=== PATIENT | male | born 1950 | race Caucasian/White ===

== ENCOUNTER 2017-08-04 23:55 | Emergency (ER) | payer MEDICARE, BC ==
[~2017-08-04] VITALS: Ht 185.4 cm; Wt 120.0 kg
[2017-08-04 23:57] VITALS: BP 150/74; PULSE 76; RESP 16; TEMP 97.6; O2SAT 95
[2017-08-05] MEDS ORDERED: GLIM4TAB PO (00:25)
[2017-08-05] MEDS ORDERED: METF500T PO (00:25)
[2017-08-05] MEDS ORDERED: LEVEMIR SQ (00:25)
[2017-08-05] MEDS ORDERED: LOSA25TA PO (00:25)
[2017-08-05 00:27] VITALS: BP 199/91; PULSE 70; RESP 20; O2SAT 96
[2017-08-05] MEDS ORDERED: HYDR-3516 PO (00:29)
[2017-08-05] MEDS ORDERED: SODIUM CHLORIDE 0.9% FLUSH 10 ML FLUSH IV FLUSH PRN (00:30)
[2017-08-05] MEDS ORDERED: MORPHINE SULFATE 2 MG/ML INJ IV PUSH ONE ×2 (00:45→02:00)
[2017-08-05] MEDS ORDERED: ONDANSETRON HCL 4 MG/2 ML VIAL IV PUSH ONE (00:45)
[2017-08-05 00:57] LABS: AUTOMATED NEUTROPHIL # 11.7 TH/MM3 (1.8-7.7); BASOPHIL # 0.1 TH/MM3 (0-0.2); BASOPHIL % 0.6 % (0.0-2.0); EOSINOPHIL # 0.2 TH/MM3 (0-0.4); EOSINOPHIL % 1.1 % (0.0-4.0); HEMATOCRIT 44.8 % (39.0-51.0); HEMOGLOBIN 15.5 GM/DL (13.0-17.0); LYMPH % 15.6 % (9.0-44.0); LYMPHOCYTE # 2.4 TH/MM3 (1.0-4.8); MEAN CELL VOLUME 89.9 FL (80.0-100.0); MEAN CORPUSCULAR HGB CONC 34.5 % (32.0-36.0); MEAN PLATELET VOLUME 7.6 FL (7.0-11.0); MONO % 5.2 % (0.0-8.0); MONOCYTE # 0.8 TH/MM3 (0-0.9); NEUT % 77.5 % (16.0-70.0); PLATELET COUNT 255 TH/MM3 (150-450); RED BLOOD COUNT 4.98 MIL/MM3 (4.50-5.90); RED CELL DISTRIBUTION WIDTH 13.4 % (11.6-17.2); WHITE BLOOD COUNT 15.1 TH/MM3 (4.0-11.0)
[2017-08-05 01:03] LABS: AMORPHOUS SEDIMENT, URINE RARE; BILIRUBIN, URINE NEG (NEG); BLOOD, URINE MOD (NEG); GLUCOSE,URINE NEG (NEG); KETONE, URINE TRACE mg/dL (NEG); MUCUS URINE MOD /lpf (OCC); NITRITE,URINE NEG (NEG); PH, URINE 5.5 (5.0-8.5); URINE COLOR YELLOW (YELLW/STRAW); URINE LEUKOCYTE ESTERASE NEG (NEG)
[2017-08-05 01:11] LABS: ALBUMIN 4.1 GM/DL (3.4-5.0); ALT (GPT) 25 U/L (12-78); AST (GOT) 14 U/L (15-37); BICARBONATE 25.7 MEQ/L (21.0-32.0); BLOOD UREA NITROGEN 20 MG/DL (7-18); CHLORIDE 108 MEQ/L (98-107); CREATININE 1.39 MG/DL (0.60-1.30); GLOMERULAR FILTRATION RATE 51 ML/MIN (>89); GLUCOSE,RANDOM 160 MG/DL (74-106); LIPASE 127 U/L (73-393); SODIUM (NA) 141 MEQ/L (136-145)
[2017-08-05 01:14] LABS: ALKALINE PHOSPHATASE 77 U/L (45-117); TOTAL BILIRUBIN ADULT 0.7 MG/DL (0.2-1.0)
[2017-08-05] MEDS ORDERED: IOHEXOL 350 MG/ML 10 ML VIAL (for RAD DIAG) IVCONTRAST ONE (01:37)
[2017-08-05] MEDS ORDERED: metroNIDAZOLE 500 MG INJ 100 ML IV ONE (01:45)
[2017-08-05] MEDS ORDERED: LEVOFLOXACIN 500 MG PREMIX INJ 100 ML IV ONE (01:45)
--- NOTE | 2017-08-05 01:52 | RADRPT ---
EXAM DATE/TIME: 08/05/2017 01:14 This report includes an Addendum and supersedes previous reports for this exam. [facility] COMPARISON: No previous studies available for comparison. INDICATIONS : Right abdomen pain. IV CONTRAST: 75 cc Omnipaque 350 (iohexol) IV ORAL CONTRAST: No oral contrast ingested. RADIATION DOSE: 10.63 CTDIvol (mGy) MEDICAL HISTORY : None SURGICAL HISTORY : Gastric sleeve. ENCOUNTER: Initial ACUITY: 1 day PAIN SCALE: 9/10 LOCATION: Right abdomen TECHNIQUE: Volumetric scanning of the abdomen and pelvis was performed. Using automated exposure control and ad justment of the mA and/or kV according to patient size, radiation dose was kept as low as reasonably achievable to obtain optimal diagnostic quality images. DICOM format image data is available electro nically for review and comparison. FINDINGS: LOWER LUNGS: 1.7 cm smooth margin mass in the medial right lower lung is seen on image #4. LIVER: Homogeneous density without lesion. There is no dilation of the biliary tree. No calcified gallston es. SPLEEN: Normal size without lesion. PANCREAS: Within normal limits. KIDNEYS: 2.5 cm exophytic cyst medial upper pole right kidney. No solid lesions. No evidence of hydronephros is. ADRENAL GLANDS: Within normal limits. VASCULAR: There is no aortic aneurysm. BOWEL/MESENTERY: Prior gastric sleeve surgery. No dilated loops of small or large bowel. A few small sigmoid diverti cula no radiographic evidence of diverticulitis. ABDOMINAL WALL: Within normal limits. RETROPERITONEUM: There is no lymphadenopathy. In the right deep pelvis, to the right of the rectum, there are multipl e mildly prominent vessels suggesting pelvic varices. No evidence of free fluid. BLADDER: No wall thickening or mass. REPRODUCTIVE: Prostate normal size. A few calcifications in the central zone. INGUINAL: There is no lymphadenopathy or hernia. MUSCULOSKELETAL: Within normal limits for patient age. CONCLUSION: 1. 1.7 cm mass medial right lower lobe. Cannot exclude malignancy. 2. Findings suggest right deep pelvic varices. No evidence of free fluid. Luis Vieyra MD on August 05, 2017 at 1:44 Board Certified Radiologist. This report was verified electronically. ADDENDUM: Not mentioned above is right-sided obstructive uropathy: The collecting system of the right kidney is minimally prominent and the right ureter is also dilated down to the distal portion. At the right u reterovesical junction, there is a 3 mm calcification is seen on image #88, characteristic of an obst ructing stone. Luis Vieyra MD on August 05, 2017 at 3:06 Board Certified Radiologist. This report was verified electronically.
[2017-08-05] MEDS ORDERED: KETOROLAC TROMETHAMINE 30 MG/ML (IVP) VIAL IV PUSH ONE (02:00)
[2017-08-05] MEDS ORDERED: SODIUM CHLOR 0.9% 1000 ML INJ 1,000 ML IV ONE ×2 (02:00→03:15)
[2017-08-05 02:01] VITALS: BP 179/80; PULSE 73; RESP 20; O2SAT 95
[2017-08-05] MEDS ORDERED: TRAM50 PO (03:38)
--- NOTE | 2017-08-05 03:38 | PD ---
HPI . Abdominal pain Chief Complaint: Abdominal Pain Time Seen by Provider: 00:21 Travel History International Travel<30 days: No Contact w/Intl Traveler<30days: No Traveled to known affect area: No History of Present Illness HPI 67-year-old male history of gastric sleeve 4 years ago, recent gastroenteritis type illness with diarrhea and 6. Weight loss over the past week that his subsided, notes relatively sudden onset right lower quadrant abdominal pain is cramping in nature and very sharp. Patient denies history of same prior. Denies fever chills sweats, dysuria frequency frequency, flank pain. Patient has moderate nausea with onset of pain. Previous diarrhea described as watery, brown/stool colored, no mucus no blood. Patient denies any significant travel history, any recent antibiotics, or any significant idiosyncratic food intake. PFSH Past Medical History Narrative Medical Past medical history reviewed Diabetes: Yes Patient Takes Glucophage: Yes Past Surgical History Abdominal Surgery: Yes (GASTRIC SLEEVE) Social History Alcohol Use: No Tobacco Use: No Substance Use: No Allergies-Medications (Allergen,Severity, Reaction): Coded Allergies: Penicillins (Verified Allergy, Mild, Itching, 08/05/17) Reported Meds & Prescriptions Reported Meds & Active Scripts Active Reported Hydrocodone-Acetaminophen 5-325 mg Tab 1 Tab PO Q6H PRN Levemir Inj (Insulin Detemir) 1,000 unit/ 10 ML Vial 20 Units SQ HS Do not mix with any other Insulin. Glimepiride 4 Mg Tab 4 Mg PO DAILY Take with breakfast or first main meal Losartan (Losartan Potassium) 25 Mg Tab 25 Mg PO DAILY Metformin (Metformin HCl) 500 Mg Tab 500 Mg PO BIDPC Narrative Medication Allergies and medications reviewed Review of Systems Except as stated in HPI: all other systems reviewed are Neg General / Constitutional: No: Fever Eyes: No: Visual changes HENT: No: Headaches Cardiovascular: No: Chest Pain or Discomfort Respiratory: No: Shortness of Breath Gastrointestinal: Positive: Nausea, Vomiting, Diarrhea, Abdominal Pain Genitourinary: No: Urgency, Frequency, Dysuria, Hematuria Musculoskeletal: No: Pain Skin: No Rash Neurologic: No: Weakness Psychiatric: No: Depression Endocrine: No: Polydipsia Hematologic/Lymphatic: No: Easy Bruising Physical Exam Narrative GENERAL: Awake and alert oriented 3, uncomfortable appearing. SKIN: Warm and dry. Color slightly pale, mildly diaphoretic HEAD: Atraumatic. Normocephalic. EYES: Pupils equal and round. No scleral icterus. No injection or drainage. ENT: No nasal bleeding or discharge. Mucous membranes pink and moist. NECK: Trachea midline. No JVD. Supple full range of motion CARDIOVASCULAR: Regular rate and rhythm. S1-S2 no murmurs rubs gallops RESPIRATORY: No accessory muscle use. Clear to auscultation. Breath sounds equal bilaterally. GASTROINTESTINAL: Abdomen soft, non-tender, nondistended. Hepatic and splenic margins not palpable. MUSCULOSKELETAL: Extremities without clubbing, cyanosis, or edema. No obvious deformities. NEUROLOGICAL: Awake and alert. No obvious cranial nerve deficits. Motor grossly within normal limits. Five out of 5 muscle strength in the arms and legs. Normal speech. PSYCHIATRIC: Appropriate mood and affect; insight and judgment normal. Data Data Last Documented VS Vital Signs Date Time Temp Pulse Resp B/P (MAP) Pulse Ox O2 Delivery O2 Flow Rate FiO2 08/05/17 02:01 73 20 179/80 (113) 95 Room Air 08/04/17 23:57 97.6 Orders Orders Complete Blood Count With Diff (08/05/17 00:29) Comprehensive Metabolic Panel (08/05/17 00:29) Lipase (08/05/17 00:29) Lactic Acid (08/05/17 00:29) Urinalysis - C+S If Indicated (08/05/17 00:29) Ct Abd/Pel W Iv Contrast(Rout) (08/05/17 00:29) Iv Access Insert/Monitor (08/05/17 00:29) Ecg Monitoring (08/05/17 00:29) Oximetry (08/05/17 00:29) Sodium Chloride 0.9% Flush (Ns Flush) (08/05/17 00:30) Ondansetron Inj (Zofran Inj) (08/05/17 00:45) Morphine Inj (Morphine Inj) (08/05/17 00:45) Levofloxacin 500 Mg Premix Inj (Levaquin (08/05/17 01:45) Metronidazole 500 Mg Inj (Flagyl 500 Mg (08/05/17 01:45) Iohexol 350 Inj (Omnipaque 350 Inj) (08/05/17 01:37) Sodium Chlor 0.9% 1000 Ml Inj (Ns 1000 M (08/05/17 02:00) Ketorolac Inj (Toradol Inj) (08/05/17 02:00) Morphine Inj (Morphine Inj) (08/05/17 02:00) Sodium Chlor 0.9% 1000 Ml Inj (Ns 1000 M (08/05/17 03:15) Labs Laboratory Tests Test 08/05/17 00:35 08/05/17 00:40 Urine Color YELLOW Urine Turbidity CLEAR Urine pH 5.5 Urine Specific [place] 1.033 Urine Protein 30 mg/dL Urine Glucose (UA) NEG mg/dL Urine Ketones TRACE mg/dL Urine Occult Blood MOD Urine Nitrite NEG Urine Bilirubin NEG Urine Urobilinogen 2.0 MG/DL Urine Leukocyte Esterase NEG Urine RBC /hpf Urine WBC 2 /hpf Urine Amorphous Sediment RARE Urine Mucus MOD /lpf Microscopic Urinalysis Comment CULT NOT INDICATED White Blood Count 15.1 TH/MM3 Red Blood Count 4.98 MIL/MM3 Hemoglobin 15.5 GM/DL Hematocrit 44.8 % Mean Corpuscular Volume 89.9 FL Mean Corpuscular Hemoglobin 31.0 PG Mean Corpuscular Hemoglobin Concent 34.5 % Red Cell Distribution Width 13.4 % Platelet Count 255 TH/MM3 Mean Platelet Volume 7.6 FL Neutrophils (%) (Auto) 77.5 % Lymphocytes (%) (Auto) 15.6 % Monocytes (%) (Auto) 5.2 % Eosinophils (%) (Auto) 1.1 % Basophils (%) (Auto) 0.6 % Neutrophils # (Auto) 11.7 TH/MM3 Lymphocytes # (Auto) 2.4 TH/MM3 Monocytes # (Auto) 0.8 TH/MM3 Eosinophils # (Auto) 0.2 TH/MM3 Basophils # (Auto) 0.1 TH/MM3 CBC Comment DIFF FINAL Differential Comment Blood Urea Nitrogen 20 MG/DL Creatinine 1.39 MG/DL Random Glucose 160 MG/DL Total Protein 8.0 GM/DL Albumin 4.1 GM/DL Calcium Level 9.0 MG/DL Alkaline Phosphatase 77 U/L Aspartate Amino Transf (AST/SGOT) 14 U/L Alanine Aminotransferase (ALT/SGPT) 25 U/L Total Bilirubin 0.7 MG/DL Sodium Level 141 MEQ/L Potassium Level 4.3 MEQ/L Chloride Level 108 MEQ/L Carbon Dioxide Level 25.7 MEQ/L Anion Gap 7 MEQ/L Estimat Glomerular Filtration Rate 51 ML/MIN Lactic Acid Level 0.9 mmol/L Lipase 127 U/L [facility] Medical Decision Making Medical Screen Exam Complete: Yes Emergency Medical Condition: Yes Medical Record Reviewed: Yes Differential Diagnosis Diverticulitis, acute gastroenteritis, colitis, renal colic Narrative Course Patient's laboratory examinations reviewed, no significant abnormalities, patient has mild elevated glucose, slightly sluggish renal function it GFR 52. CT abdomen and pelvis reviewed. Patient has mildly dilated ureter right sided with small 2 mm UVJ stone. Right pelvic varices noted, of unclear significance or correlation. Right lower lung field 1.7 cm roundish mass noted by radiology. Above results discussed with patient with recommendation for follow-up with his physician regarding the lung mass and pelvic varices, as well as evolution of patient's UVJ stone. Possible malignancy and right lower lung field discussed. Patient will be sent home with copy of his lab work and CT on CD to take over to his doctors in [place]. Diagnosis Primary Impression: Renal colic on right side Additional Impressions: Gastroenteritis Mass of right lung Patient Instructions: General Instructions, Renal Colic (ED), Soft Tissue Mass (ED) Additional Instructions: You have a 1.7 cm lung mass of the records showed. As per our discussion, recommend he have this followed up through your primary care physician for potential biopsy and complete workup for potential malignancy. Pain medications and oral fluids as discussed for right-sided kidney stone. Follow-up for pelvic varices as well. Return probably for worsening Scripts Tramadol (Ultram) 50 Mg Tab 50 MG PO Q8H Y for PAIN, #20 TAB 0 Refills Prov: Jovany Nolan MD 08/05/17 Disposition: DISCHARGE HOME Condition: Stable Jovany Nolan MD Aug 05, 2017 03:38
[2017-08-05] MEDS ORDERED: METOCLOPRAMIDE HCL 10 MG/2 ML VIAL IV PUSH ONE (04:30)
[2017-08-05] MEDS ORDERED: traMADol HCL 50 MG TAB PO ONE (04:30)
== END 2017-08-05 05:02 | disposition home or self-care (01) ==
LOC: NEPE 23:55
DX: N23 Unspecified renal colic (principal); K52.9 Noninfective gastroenteritis and colitis, unspecified; R91.8 Other nonspecific abnormal finding of lung field; E11.9 Type 2 diabetes mellitus without complications; Z88.0 Allergy status to penicillin; Z79.899 Other long term (current) drug therapy
CPT/HCPCS: 74177; 80053; 81001; 83605; 83690; 85025; 96374; 96375; 96376; 99285; J1885; J1956; J2270; J2405; J2765; J7030; Q9967

== ENCOUNTER 2017-08-08 07:46 | Emergency (ER) | payer MEDICARE, BC ==
[~2017-08-08] VITALS: Ht 188 cm; Wt 118.0 kg
[~2017-08-08 07:46] MED LIST: GLIM4TAB PO; HYDR-3516 PO; LEVEMIR SQ; LOSA25TA PO; METF500T PO; TRAM50 PO
[2017-08-08 07:48] VITALS: BP 144/81; PULSE 93; RESP 13; TEMP 98.7; O2SAT 94
[2017-08-08] MEDS ORDERED: ONDANSETRON HCL 4 MG/2 ML VIAL IV PUSH ONE (08:15)
[2017-08-08] MEDS ORDERED: SODIUM CHLOR 0.9% 1000 ML INJ 1,000 ML IV ONE ×4 (08:15→11:15)
[2017-08-08] MEDS ORDERED: MORPHINE SULFATE 2 MG/ML INJ IV PUSH ONE ×2 (08:15→11:15)
--- NOTE | 2017-08-08 08:34 | RADRPT ---
EXAM DATE/TIME: 08/08/2017 08:21 [facility] COMPARISON: No previous studies available for comparison. INDICATIONS : Right lower abdomen pain MEDICAL HISTORY : None. SURGICAL HISTORY : Gastric sleeve. ENCOUNTER: [facility] ACUITY: 4 - 6 days PAIN SCORE: 6/10 LOCATION: Right lower quadrant FINDINGS: Supine view of the abdomen was performed. The abdominal bowel gas pattern is normal. No abnormal ma sses, calcifications, or organomegaly is seen. The osseous structures are unremarkable. CONCLUSION: No acute disease. Large stool burden identified within the right colon. Zully Ramírez MD on August 08, 2017 at 8:31 Board Certified Radiologist. This report was verified electronically.
--- NOTE | 2017-08-08 08:38 | PD ---
HPI . Right flank pain Chief Complaint: Flank/Kidney Pain Time Seen by Provider: 08:08 Travel History International Travel<30 days: No Contact w/Intl Traveler<30days: No Traveled to known affect area: No History of Present Illness HPI This patient presents with chief complaint of right flank pain. Onset was . He was seen here on that date and diagnosed with a right UVJ stone measuring 3 mm. Patient presents complaining with continued pain. He states that he has not been able to take him very much fluid because of nausea as well as a previous gastric sleeve which limits his oral intake. He rates his pain 9/10. No modifying factors. Associated symptoms include nausea, poor oral intake and dribbling. PFSH Past Medical History Diabetes: Yes Patient Takes Glucophage: Yes Respiratory: Yes (mass on r lower lobe of lung 1.7 cm) Influenza Vaccination: Yes Past Surgical History Abdominal Surgery: Yes (GASTRIC SLEEVE) Social History Alcohol Use: No Tobacco Use: No Substance Use: No Allergies-Medications (Allergen,Severity, Reaction): Coded Allergies: Penicillins (Verified Allergy, Mild, Itching, 08/08/17) Reported Meds & Prescriptions Reported Meds & Active Scripts Active Ultram (Tramadol HCl) 50 Mg Tab 50 Mg PO Q8H PRN Reported Levemir Inj (Insulin Detemir) 1,000 unit/ 10 ML Vial 10 Units SQ BID Do not mix with any other Insulin. Glimepiride 4 Mg Tab 4 Mg PO DAILY Take with breakfast or first main meal Losartan (Losartan Potassium) 25 Mg Tab 25 Mg PO DAILY Metformin (Metformin HCl) 500 Mg Tab 500 Mg PO BIDPC Review of Systems Except as stated in HPI: all other systems reviewed are Neg General / Constitutional: No: Fever, Chills Gastrointestinal: Positive: Nausea, Loss of Appetite Genitourinary: Positive: Dribbling, Flank Pain Physical Exam Narrative GENERAL: Patient walked into the room in no apparent distress. SKIN: warm/dry. Normal color and turgor. HEAD: Normocephalic. Atraumatic. EYES: Pupils equal and round. No scleral icterus. No injection or drainage. ENT: No nasal bleeding or discharge. Mucous membranes pink and moist. NECK: Trachea midline. Full range of motion without pain.. CARDIOVASCULAR: Regular rate and rhythm. RESPIRATORY: No accessory muscle use. Clear to auscultation. Breath sounds equal bilaterally. GASTROINTESTINAL: Abdomen soft. Right lower quadrant tenderness. Bowel sounds present. Nondistended. : No CVA tenderness. MUSCULOSKELETAL: No obvious deformities. NEUROLOGICAL: Awake and alert. No obvious cranial nerve deficits. Motor grossly within normal limits. Normal speech. PSYCHIATRIC: Appropriate mood and affect; insight and judgment normal. Data Data Last Documented VS Vital Signs Date Time Temp Pulse Resp B/P (MAP) Pulse Ox O2 Delivery O2 Flow Rate FiO2 08/08/17 10:35 72 17 148/71 (96) 97 Room Air 08/08/17 07:48 98.7 Orders Orders Sodium Chlor 0.9% 1000 Ml Inj (Ns 1000 M (08/08/17 08:15) Morphine Inj (Morphine Inj) (08/08/17 08:15) Ondansetron Inj (Zofran Inj) (08/08/17 08:15) Abdomen, Kub Only (08/08/17 08:08) Tamsulosin (Flomax) (08/08/17 08:45) Sodium Chlor 0.9% 1000 Ml Inj (Ns 1000 M (08/08/17 09:00) Morphine Inj (Morphine Inj) (08/08/17 11:15) Sodium Chlor 0.9% 1000 Ml Inj (Ns 1000 M (08/08/17 11:15) Sodium Chlor 0.9% 1000 Ml Inj (Ns 1000 M (08/08/17 11:15) Complete Blood Count With Diff (08/08/17 11:22) Basic Metabolic Panel (Bmp) (08/08/17 11:22) Urinalysis - C+S If Indicated (08/08/17 11:22) Ed Discharge Order (08/08/17 12:58) Labs Laboratory Tests Test 08/08/17 11:45 White Blood Count 12.9 TH/MM3 Red Blood Count 4.52 MIL/MM3 Hemoglobin 14.3 GM/DL Hematocrit 40.2 % Mean Corpuscular Volume 89.1 FL Mean Corpuscular Hemoglobin 31.7 PG Mean Corpuscular Hemoglobin Concent 35.6 % Red Cell Distribution Width 13.2 % Platelet Count 226 TH/MM3 Mean Platelet Volume 8.2 FL Neutrophils (%) (Auto) 75.9 % Lymphocytes (%) (Auto) 12.3 % Monocytes (%) (Auto) 11.2 % Eosinophils (%) (Auto) 0.2 % Basophils (%) (Auto) 0.4 % Neutrophils # (Auto) 9.8 TH/MM3 Lymphocytes # (Auto) 1.6 TH/MM3 Monocytes # (Auto) 1.4 TH/MM3 Eosinophils # (Auto) 0.0 TH/MM3 Basophils # (Auto) 0.1 TH/MM3 CBC Comment AUTO DIFF Differential Comment AUTO DIFF CONFIRMED Platelet Estimate NORMAL Platelet Morphology Comment NORMAL Red Cell Morphology Comment NORMAL Urine Color YELLOW Urine Turbidity CLEAR Urine pH 6.0 Urine Specific [place] 1.021 Urine Protein 30 mg/dL Urine Glucose (UA) NEG mg/dL Urine Ketones 40 mg/dL Urine Occult Blood NEG Urine Nitrite NEG Urine Bilirubin NEG Urine Urobilinogen 2.0 MG/DL Urine Leukocyte Esterase NEG Urine RBC LESS THAN 1 /hpf Urine WBC 1 /hpf Urine Squamous Epithelial Cells <1 /hpf Urine Mucus FEW /lpf Microscopic Urinalysis Comment CULT NOT INDICATED Blood Urea Nitrogen 18 MG/DL Creatinine 1.48 MG/DL Random Glucose 75 MG/DL Calcium Level 8.8 MG/DL Sodium Level 134 MEQ/L Potassium Level 4.3 MEQ/L Chloride Level 101 MEQ/L Carbon Dioxide Level 21.5 MEQ/L Anion Gap 12 MEQ/L Estimat Glomerular Filtration Rate 47 ML/MIN [facility] Medical Decision Making Medical Screen Exam Complete: Yes Emergency Medical Condition: Yes Medical Record Reviewed: Yes (patient was seen here 08/04. He was treated while here with Levaquin and Flagyl as well as morphine and Toradol. He was subsequently diagnosed with renal colic. He was discharged with a prescription for Ultram.) Differential Diagnosis Differential diagnosis of flank pain includes but is not limited to kidney stone , pyelonephritis, musculoskeletal pain, PE Narrative Course Patient presents complaining with continued right flank pain. He was worked up completely on 08/04. The evaluation will not be repeated. He will be treated with IV fluids. He has had morphine. Flomax has been ordered. I anticipate that he will need a few liters of IVF. This patient has had 2 L of fluid and morphine 4 mg IV. He was doing a little bit better. However, he was still not making any urine. He now states that his pain has returned. I have ordered another 2 L of fluid. I will give him another dose of morphine. I have also ordered labs and a urinalysis at this point. CBC & BMP Diagram 08/08/17 11:45 Calcium Level 8.8 UA is clear today. He has been treated with a total of 4 L of IV fluid. Starting to make urine. He will be discharged home. I have prescribed Flomax, [place] and Zofran. Diagnosis Primary Impression: Dehydration Additional Impression: Kidney stone Patient Instructions: Dehydration (DC), General Instructions, Narcotic given in the ED Med/Other Pt SpecificInfo: Prescription(s) given Scripts Ondansetron (Zofran) 4 Mg Tab 4 MG PO Q6HR Y for NAUSEA OR VOMITING, #12 TAB 0 Refills Prov: Noreen Hay MD 08/08/17 Hydrocodone-Acetaminophen ([place]) 5 Mg-325 Mg Tab 1 TAB PO Q4H Y for PAIN, #12 TAB 0 Refills Prov: Noreen Hay MD 08/08/17 Tamsulosin (Flomax) 0.4 Mg Cap 0.4 MG PO HS for Manage Prostate Problems, #30 CAP 0 Refills Prov: Noreen Hay MD 08/08/17 Disposition: 01 DISCHARGE HOME Condition: Stable Noreen Hay MD Aug 08, 2017 08:38
[2017-08-08] MEDS ORDERED: TAMSULOSIN HCL 0.4 MG CAP PO ONE (08:45)
[2017-08-08 10:35] VITALS: BP 148/71; PULSE 72; RESP 17; O2SAT 97
[2017-08-08 12:10] LABS: AUTOMATED NEUTROPHIL # 9.8 TH/MM3 (1.8-7.7); BASOPHIL # 0.1 TH/MM3 (0-0.2); BASOPHIL % 0.4 % (0.0-2.0); EOSINOPHIL % 0.2 % (0.0-4.0); HEMATOCRIT 40.2 % (39.0-51.0); HEMOGLOBIN 14.3 GM/DL (13.0-17.0); LYMPH % 12.3 % (9.0-44.0); LYMPHOCYTE # 1.6 TH/MM3 (1.0-4.8); MEAN CELL VOLUME 89.1 FL (80.0-100.0); MEAN CORPUSCULAR HEMOGLOBIN 31.7 PG (27.0-34.0); MEAN CORPUSCULAR HGB CONC 35.6 % (32.0-36.0); MEAN PLATELET VOLUME 8.2 FL (7.0-11.0); MONO % 11.2 % (0.0-8.0); MONOCYTE # 1.4 TH/MM3 (0-0.9); NEUT % 75.9 % (16.0-70.0); PLATELET COUNT 226 TH/MM3 (150-450); RED BLOOD COUNT 4.52 MIL/MM3 (4.50-5.90); RED CELL DISTRIBUTION WIDTH 13.2 % (11.6-17.2); WHITE BLOOD COUNT 12.9 TH/MM3 (4.0-11.0)
[2017-08-08 12:19] LABS: BILIRUBIN, URINE NEG (NEG); BLOOD, URINE NEG (NEG); GLUCOSE,URINE NEG (NEG); KETONE, URINE 40 mg/dL (NEG); MUCUS URINE FEW /lpf (OCC); NITRITE,URINE NEG (NEG); SQUAMOUS EPITHELIAL CELL URINE <1 /hpf (0-5); URINE COLOR YELLOW (YELLW/STRAW); URINE LEUKOCYTE ESTERASE NEG (NEG)
[2017-08-08 12:31] LABS: BICARBONATE 21.5 MEQ/L (21.0-32.0); CALCIUM 8.8 MG/DL (8.5-10.1); CREATININE 1.48 MG/DL (0.60-1.30)
[2017-08-08] MEDS ORDERED: NORC5TAB PO (13:01)
[2017-08-08] MEDS ORDERED: TAMS5CAP PO (13:01)
[2017-08-08] MEDS ORDERED: ZOFR4TAB PO (13:01)
== END 2017-08-08 14:09 | disposition home or self-care (01) ==
LOC: NEPE 07:46
DX: E86.0 Dehydration (principal); N20.2 Calculus of kidney with calculus of ureter
CPT/HCPCS: 74018; 80048; 81001; 85025; 96361; 96374; 96375; 99284; J2270; J2405; J7030